=== PATIENT | male | born 1995 | race Two or more races ===

== ENCOUNTER 2019-03-05 18:28 | Emergency (ER) | payer MEDICAID ==
[~2019-03-05] VITALS: Ht 188 cm; Wt 63.6 kg
[2019-03-05] MEDS ORDERED: ONDANSETRON 2MG/ML, 2ML ONE (19:02)
[2019-03-05 19:05] LABS: BASOPHILS % (AUTO) 0 % (0-1); EOSINOPHILS # (AUTO) 0.01 x10^3/uL (0-0.4); EOSINOPHILS % (AUTO) 0 % (1-7); LYMPHOCYTES # (AUTO) 0.62 x10^3/uL (1-3.4); LYMPHOCYTES % (AUTO) 8 % (22-44); MD NO; MEAN CORPUSCULAR HEMOGLOBIN 32.6 pg (27.5-34.5); MEAN CORPUSCULAR HGB CONC 33.4 g/dL (33.2-36.2); MEAN CORPUSCULAR VOLUME 97.8 fL (81-97); MONOCYTES # (AUTO) 0.32 x10^3/uL (0.2-0.8); MONOCYTES % (AUTO) 4 % (2-9); NEUTROPHILS # (AUTO) 6.63 x10^3/uL (1.8-6.8); NEUTROPHILS % (AUTO) 88 % (42-75); PLATELET COUNT 214 x10^3/uL (130-400); RED CELL DISTRIBUTION WIDTH 13.7 % (9.4-14.8)
--- NOTE | 2019-03-05 19:13 | NUR ---
First pt contact, IV start and meds given. Pt notes onset N/V/D midnight. Aware tor emain NPO at this time, side rails up times two, call maciel in reach, aware to call for assist. Very pleasant young man
[2019-03-05 19:17] LABS: ALBUMIN 4.4 g/dL (3.4-5.0); ANION GAP 7 mmol/L (5-15); CALCIUM 9.6 mg/dL (8.5-10.1); CHLORIDE 105 mmol/L (98-107)
[2019-03-05 19:20] LABS: ALANINE AMINOTRANSFERASE 23 U/L (12-78); ALKALINE PHOSPHATASE 112 U/L (45-117); BILIRUBIN,TOTAL 0.9 mg/dL (0.2-1.0); CREATININE 1.23 mg/dL (0.7-1.3)
--- NOTE | 2019-03-05 19:48 | NUR ---
PT REPORTS THAT HE IS FEELING BETTER AT THIS TIME.
[2019-03-05 19:59] VITALS: BP 123/77
[2019-03-05] MEDS ORDERED: ONDANSETRON 2MG/ML, 2ML IVPush ONE (20:00)
[2019-03-05] MEDS ORDERED: SODIUM CHLORIDE 0.9% 1,000ML IVBOLUS ONE (20:00)
[2019-03-05] MEDS ORDERED: SODIUM CHLORIDE FLUSH 10ML SYR IVF ONE (20:00)
== END 2019-03-05 20:01 | disposition home or self-care (01) ==
LOC: EDSEX 18:28 → ED 19:45
DX: K52.9 Noninfective gastroenteritis and colitis, unspecified (principal); R50.9 Fever, unspecified; R11.2 Nausea with vomiting, unspecified; R51 Headache
CPT/HCPCS: 36415; 80053; 85025; 96361; 96374; 99283; J2405; J7030